=== PATIENT | female | born 1995 | race Two or more races ===

== ENCOUNTER 2021-10-17 18:52 | Emergency (ER) | payer OTHER ==
[~2021-10-17] VITALS: Ht 160 cm; Wt 61.3 kg
[2021-10-17 19:44] VITALS: BP 126/98
[2021-10-17] MEDS ORDERED: CLINDAMYCIN 600 MG/4 ML VL IM ONE (20:15)
[2021-10-17] MEDS ORDERED: CLIN-203 PO (20:17)
== END 2021-10-17 22:28 | disposition left against medical advice (07) ==
LOC: ER 18:52
DX: L03.211 Cellulitis of face (principal); Z79.2 Long term (current) use of antibiotics